=== PATIENT | male | born 1950 | race Caucasian/White ===

== ENCOUNTER → 2021-03-23 09:18 | Outpatient (CLI) | payer MEDICARE, SELFPAY ==
--- NOTE | ~2021-03-23 | XR_ITS ---
XR abdomen/kub 1V 03/23/2021 09:52 INDICATION: Left flank pain TECHNIQUE: KUB COMPARISON: None FINDINGS: Bowel gas pattern is normal. There is no evidence of free air, mass, organomegaly, ascites or obstruction. No abnormal calculi are seen. The bones appear intact. Mild osteoarthritis of the hips. Mild lumbar spondylosis. IMPRESSION: 1: No acute abdominal abnormality identified. Reviewed, dictated and finalized at location B. [employer]
== END ==
PROVIDERS: PCP Physician Assistant; Visit Provider Physician Assistant
DX: R10.9 Unspecified abdominal pain (principal)
CPT/HCPCS: 74018

== ENCOUNTER 2024-05-22 15:16 | Outpatient (CLI) | payer MEDICARE, SELFPAY ==
--- NOTE | ~2024-05-22 | XR_ITS ---
XR hip BI 2V w AP pelvis 05/22/2024 16:10 Indication: Hip pain Procedure: AP view of the pelvis and 2 views each hip Comparison: No prior studies for comparison. Findings: Mild symmetric osteoarthritis of the hips. There is atherosclerosis. No fracture or traumat ic malalignment. No soft tissue abnormality. Impression: 1: Mild symmetric osteoarthritis of the hips. Reviewed, dictated and finalized at location A. Impression: 1: Mild symmetric osteoarthritis of the hips.
--- NOTE | ~2024-05-22 | XR_ITS ---
XR lumbar spine min 4V 05/22/2024 16:10 Indication: Facet arthropathy Procedure: 5 views lumbar spine Comparison: No prior studies for comparison. Findings: Mild levocurvature of the lumbar spine. There is a transitional S1 segment. There is advanc ed facet hypertrophy at L4-5 and L5-S1. No evidence for spondylolisthesis. There is atherosclerosis o f the aorta. Nonobstructive bowel gas pattern. No fracture or traumatic malalignment. Pedicles intact . Impression: 1: Moderate multilevel facet degenerative change primarily involving L4-5 and L5-S1. Reviewed, dictated and finalized at location A. Impression: 1: Moderate multilevel facet degenerative change primarily involving L4-5 and L 5-S1.
--- NOTE | ~2024-05-22 | XR_ITS ---
XR thoracic spine 3V 05/22/2024 16:10 Indication: Back pain Procedure: 3 views of the thoracic spine Comparison: No prior studies for comparison. Findings: Status post median sternotomy for CABG. There are coronary artery stents. There is mild mul tilevel thoracic spondylosis was slightly accentuated kyphosis. There are diaphragmatic calcification s suggesting prior asbestos exposure. There is atherosclerosis of the aorta. Impression: 1: Mild thoracic spondylosis. Reviewed, dictated and finalized at location A. Impression: 1: Mild thoracic spondylosis.
== END 2024-05-22 15:17 | disposition home or self-care (01) ==
PROVIDERS: PCP Nurse Practitioner Family; Visit Provider Nurse Practitioner Family
DX: M47.894 Other spondylosis, thoracic region (principal); M51.369 Other intervertebral disc degeneration, lumbar region without mention of lumbar back pain or lower extremity pain; M16.0 Bilateral primary osteoarthritis of hip
CPT/HCPCS: 72072; 72110; 73521

== ENCOUNTER 2024-06-06 08:45 | Outpatient (CLI) | payer MEDICARE, SELFPAY ==
--- NOTE | ~2024-06-06 | XR_ITS ---
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 Mild inferior positioning of the humeral head in relation to the glenoid on both sides, is likely pos itional. Correlate with physical examination to rule out any inferior subluxation. Joint space narrowing, subchondral sclerosis, subchondral cyst formation and osteophyte formation, co mpatible with moderate osteoarthritis. Reviewed, dictated and finalized at location A.
== END 2024-06-06 08:46 | disposition home or self-care (01) ==
LOC: MICIMG 08:47
PROVIDERS: PCP Nurse Practitioner Family; Visit Provider Nurse Practitioner Family
DX: M19.011 Primary osteoarthritis, right shoulder (principal); M19.012 Primary osteoarthritis, left shoulder
CPT/HCPCS: 73030